=== PATIENT | male | born 1995 | race Two or more races ===

== ENCOUNTER 2023-11-27 20:24 | Emergency (ER) | payer OTHER, SELFPAY ==
[2023-11-27 20:48] VITALS: BP 158/94; PULSE 81; RESP 18; TEMP 37.1; O2SAT 97; BMI 32.9
--- NOTE | 2023-11-27 20:53 | CRLHL7_ITS ---
For Patients: As a result of the Cures Act, medical imaging exams and procedure reports are released immediately into your electronic medical record. You may view this report before your referring provider. If you have questions, please contact your health care provider. INDICATION: Fall with finger pain and decreased movement TECHNIQUE: Finger radiograph 3 views right 5th COMPARISON: None FINDINGS: Evaluation of the digits on the lateral examination is moderately degraded due to overlapped digit positioning and finger flexion on all views. Bone: There is a mildly angulated fracture near the distal 5th metacarpal. Joint: The metacarpophalangeal and interphalangeal joints are normal in appearance. Soft tissue: Unremarkable. No radiopaque foreign bodies are seen. IMPRESSION: 1. There is a mildly angulated fracture near the distal 5th metacarpal. Dictated by Antonio Vang MD @ 11/27/2023 9:48:17 PM Dictated by: Antonio Vang MD @ 11/27/2023 21:48:20 (Electronically Signed)
--- NOTE | 2023-11-27 22:03 | ED_ITS ---
HPI - Extremity Injury (Upper) General Chief Complaint: Extremity Pain/Injury, Upper Stated Complaint: right hand left pinky pain Time Seen by Provider: 11/27/23 21:44 History of Present Illness HPI narrative: This 28-year-old male comes in with an injury to his right hand that occurred earlier today. He was walking outside and slipped on ice. He fell forward onto his right fist and has an injury like a boxer's fracture to his right hand. He did not hit his head or have other injury. Related Data Home Medications Medication Instructions Recorded Confirmed No Known Home Medications 11/27/23 11/27/23 Allergies Allergy/AdvReac Type Severity Reaction Status Date / Time No Known Drug Allergies Allergy Verified 11/27/23 20:47 Review of Systems Status of ROS: Reports: 10 or more systems reviewed and unremarkable except as noted in History and below Narrative: Constitutional: No fevers, no weight gain or loss. Eyes: No discharge. No vision changes. HENT: No congestion, no sore throat, no ear pain. Cardiovascular: No chest pain, no palpitations. Respiratory: No shortness of breath, no wheezes, no cough. Gastrointestinal: No abdominal pain, no vomiting, no diarrhea. Genitourinary: No dysuria, no hematuria. Musculoskeletal: Right hand injury. Skin: No rashes, no pruritis. Neurological: No dizziness, weakness, sensory change, speech change. Endo/Heme/Allergies: No bruising or bleeding. No polydipsia. Pysch: no suicidality, no anxiety, no insomnia. All other systems reviewed and are negative. [facility] Medical History (Updated 11/27/23 @ 22:20 by Rodger Pinto MD) No significant past medical history Surgical History (Updated 11/27/23 @ 21:41 by Aaron Aburto RN) No significant past surgical history Social History Smoking Status: Never smoker Second hand tobacco smoke exposure: No How often do you have a drink containing alcohol: never How often do you have six or more drinks on one occasion: Never AUDIT-C Alcohol total score: 0 Non-prescribed substance use: denies use Exam Narrative: Exam Narrative: Constitutional: Well-developed, well-nourished, no acute distress. HEENT: Normocephalic, atraumatic. Neck: Normal range of motion. Nontender. Supple. Heart: Intact distal pulses. Lungs: No chest discomfort. No wheezes, rhonchi, or rales. Abdomen: Nontender. Back: Normal range of motion. Extremities: Pain and swelling in the distal portion of the right 5th metacarpal. Skin: Intact. No rash. Warm. No erythema or pallor. Neurologic: No altered sensation. No weakness. Alert and oriented. Psychiatric: No suicidality. No anxiety or depression. No insomnia. Nursing notes and vitals signs are reviewed. Const: Vital Signs, click to edit/add: Vital Signs - 24 hr 11/27/23 20:48 Temperature 98.7 F Pulse Rate [Pulse Oximeter] 81 Respiratory Rate 18 Blood Pressure [[facility] Upper Arm] 158/94 H Pulse Oximetry 97 Oxygen Delivery Me thod Room Air Course Vital Signs Vital signs: Initial Vital Signs Temperature 98.7 F 11/27/23 20:48 Temperature Source Temporal Artery Scan 11/27/23 20:48 Pulse Rate 81 11/27/23 20:48 Respiratory Rate 18 11/27/23 20:48 Blood Pressure 158/94 H 11/27/23 20:48 Blood Pressure Mean 115 H 11/27/23 20:48 Pulse Oximetry 97 11/27/23 20:48 Oxygen Delivery Method Room Air 11/27/23 20:48 Vital Signs Temperature 98.7 F 11/27/23 20:48 Pulse Rate 81 11/27/23 20:48 Respiratory Rate 18 11/27/23 20:48 Blood Pressure 158/94 H 11/27/23 20:48 Pulse Oximetry 97 11/27/23 20:48 Oxygen Delivery Method Room Air 11/27/23 20:48 Temperature 98.7 F 11/27/23 20:48 Pulse Rate 81 11/27/23 20:48 Respiratory Rate 18 11/27/23 20:48 Blood Pressure 158/94 H 11/27/23 20:48 Pulse Oximetry 97 11/27/23 20:48 Oxygen Delivery Method Room Air 11/27/23 20:48 MDM - Extremity Injury (Upper) MDM Narrative Medical decision making narrative: This patient comes in with an injury to his right hand. X-ray images show evidence of a minimally angulated fracture of the distal right metacarpal. The patient was placed in an ulnar gutter splint using Ortho Glass material. He is instructed to follow-up with orthopedic clinic. He did receive an [employer] pres cription for Toradol. Imaging Data XR R Hand: Radiologist's impression: There is a mildly angulated fracture near the distal 5th metacarpal. Discharge Plan Discharge Clinical Impression: Fracture of hand Patient Disposition: Home, Self-Care Condition: Stable Additional Instructions: Wear splint and use pain medicine as needed and directed. Follow-up with orthopedic clinic. Call for appointment by dialing [phone]. Prescriptions: No Action No Known Home Medications Follow Up/Referrals: Provider,Not a Local [Primary Care Provider] - Stand Alone Forms: [employer] Info Instructions
[2023-11-27 22:32] VITALS: BP 132/74; BP 158/94; PULSE 79; PULSE 81; RESP 18; TEMP 36.7; TEMP 37.1; O2SAT 97
== END 2023-11-27 22:35 | disposition home or self-care (01) ==
PROVIDERS: Emergency Provider Emergency Medicine Emergency Medical Services
DX: S62.306A Unspecified fracture of fifth metacarpal bone, right hand, initial encounter for closed fracture (principal); W00.0XXA Fall on same level due to ice and snow, initial encounter
CPT/HCPCS: 73140; 99283; 99284